=== PATIENT | male | born 1975 | race Caucasian/White ===

== ENCOUNTER 2017-01-29 20:10 | Emergency (ER) | payer BC ==
[2017-01-29 20:25] VITALS: BP 132/77; PULSE 52; RESP 16; O2SAT 100
--- NOTE | 2017-01-29 20:52 | ED PDOC ---
Lower Extremity Pain/Injury Time Seen by Provider: 01/29/17 20:27 Chief Complaint (Nursing): Lower Extremity Problem/Injury Chief Complaint (Provider): Foot pain History Per: Patient Additional Complaint(s): Pt is a 41 yo male, no PMH, presents to ED with complaints of left 5th toe pain sustained after hitting foot on table leg today. +deformity noted. Pt c.o pain upon ambulation. Past Medical History Reviewed: Nursing Documentation, Vital Signs Vital Signs: Last Vital Signs Temp 98.4 F 01/29/17 20:22 Pulse 52 L 01/29/17 20:22 Resp 16 01/29/17 20:22 BP 132/77 01/29/17 20:22 Pulse Ox 100 01/29/17 20:22 - Medical History PMH: No Chronic Diseases - Surgical History Surgical History: No Surg Hx - Family History Family History: States: No Known Family Hx - Living Arrangements Living Arrangements: With Family - Social History Current smoker - smoking cessation education provided: No Alcohol: None Drugs: Denies - Home Medications Home Medications: Ambulatory Orders Medication Instructions Recorded Ibuprofen [Motrin] 600 mg PO Q6 #20 tab 01/29/17 oxyCODONE/Acetaminophen [Percocet 1 ea PO Q6 PRN #5 tab 01/29/17 5/325 mg Tab] - Allergies Allergies/Adverse Reactions: Allergies Allergy/AdvReac Type Severity Reaction Status Date / Time No Known Allergies Allergy Verified 01/29/17 20:25 Review of Systems ROS Statement: Except As Marked, All Systems Reviewed And Found Negative Musculoskeletal: Positive for: Foot Pain Physical Exam - Reviewed Nursing Documentation Reviewed: Yes Vital Signs Reviewed: Yes - Physical Exam Appears: Positive for: Well, Non-toxic, No Acute Distress Head Exam: Positive for: ATRAUMATIC, NORMAL INSPECTION, NORMOCEPHALIC Skin: Positive for: Normal Color, Warm, DRY Eye Exam: Positive for: EOMI, Normal appearance, PERRL ENT: Positive for: Normal ENT Inspection Neck: Positive for: Normal, Painless ROM Cardiovascular/Chest: Positive for: Regular Rate, Rhythm Respiratory: Positive for: CNT, Normal Breath Sounds Gastrointestinal/Abdominal: Positive for: Normal Exam, Bowel Sounds, Soft Back: Positive for: Normal Inspection Extremity: Positive for: Tenderness (left 5th toe tenderness, medial displacement. (+) ecchymosis and mild edema), Deformity, Swelling Neurologic/Psych: Positive for: Alert, Oriented - ECG O2 Sat by Pulse Oximetry: 100 Medical Decision Making Medical Decision Making: Pt medicated with Motrin PO XR: (+) fracture to proximal phalanx, as read by DALILA Podiatry consult obtained, see note. Disposition - Clinical Impression Clinical Impression: Toe fracture - Patient ED Disposition Is Patient to be Admitted: No - Disposition Referrals: Podiatry Clinic [Outside] Disposition: Routine/Home Disposition Time: 23:25 Condition: STABLE Prescriptions: Ibuprofen [Motrin] 600 mg PO Q6 #20 tab oxyCODONE/Acetaminophen [Percocet 5/325 mg Tab] 1 ea PO Q6 PRN #5 tab PRN Reason: Pain, Severe (8-10) Instructions: Toe Fracture (ED) Forms: [facility] (Kyrgyz) - POA Present On Arrival: None
--- NOTE | 2017-01-29 21:53 | CP.PCM.CON ---
History of Present Illness - History of Present Illness History of Present Illness: Podiatry Consult Note- Dr. Ptaino 41 y/o male seen at bedside in ED after consult for left 5th toe injury. Pt states he was playing with his kids and banged his toe against the bedpost. Pt states the toe was bent in an inward direction and he was able to move it over a good amount himself to get it back in place. Pt says the toe feels numb at this time. Pt denies any tingling, burning or shooting pains to the toe. Pt denies F/C/N/V/CP/SOB. PMH: denies. Hx of orthopedic injuries (leg fracture, metatarsal fracture, elbow fracture, all conservatively tx) PSH: rectal prolapse surgery (04/2016) All: NKDA Social: social EtOH; denies cigarette or drug use Review of Systems - Review of Systems All systems: reviewed and no additional remarkable complaints except (per HPI) Past Patient History - Infectious Disease Hx of Infectious Diseases: None Meds Home Medications: Home Medication List Medication Instructions Recorded Confirmed Type Ibuprofen [Motrin] 600 mg PO Q6 #20 tab 01/29/17 Rx oxyCODONE/Acetaminophen [Percocet 1 ea PO Q6 PRN #5 tab 01/29/17 Rx 5/325 mg Tab] Allergies/Adverse Reactions: Allergies Allergy/AdvReac Type Severity Reaction Status Date / Time No Known Allergies Allergy Verified 01/29/17 20:25 Physical Exam - Constitutional Appears: Well, Non-toxic, No Acute Distress - Extremities Exam Additional comments: Left lower extremity focused examination: Vasc: DP and PT pulses palpable 2/4. Temperature gradient warm to cool. CFT < 3 sec to all digits. Localized edema noted to L 5th digit. Neuro: Protective sensation grossly intact Derm: No ecchymosis, no erythema, no breaks in skin or soft tissue, no clinical signs of infection Ortho: Mild dorsal and medial dislocation of 5th digit distal phalanx at PIPJ. Possible nondisplaced partial fracture of 5th proximal phalanx shaft, inconclusive on radiologic examination. Tenderness elicited on palpation of 5th digit distal phalanx. Tenderness elicited on passive flexion and extension of 5th digit at PIPJ. - Neurological Exam Neurological exam: Alert, Oriented x3 - Psychiatric Exam Psychiatric exam: Normal Affect, Normal Mood Results - Vital Signs Recent Vital Signs: Last Vital Signs Temp 98.4 F 01/29/17 20:22 Pulse 52 L 01/29/17 20:22 Resp 16 01/29/17 20:22 BP 132/77 01/29/17 20:22 Pulse Ox 100 01/29/17 20:52 Assessment & Plan - Assessment and Plan (Free Text) Assessment: 41 y/o male seen in ED for left foot 5th digit PIPJ dislocation with possible oblique partial fracture of proximal phalanx Plan: Pt seen and evaluated by podiatry in ED Discussed plan with attending Dr. Patino X-rays reveal dorsomedial dislocation of left foot 5th digit at PIPJ with possible oblique fracture of 5th proximal phalanx Sterilized 5th digit and surrounding region with alcohol pads 8 cc of 1% Lidocaine plain injected in local block fashion to L foot 5th digit Closed manipulation of L foot 5th digit at PIPJ performed to relocate digital bones in appropriate position Pt tolerated procedure without incident Tongue depressor and silk tape utilized to bandage toe in corrected position in a barry splint fashion with 4th digit Pt instructed on how to perform barry splinting at home Recommended that patient keep bandages dry and use a plastic bag when showering Pt dispensed surgical shoe - recommended use at all times weightbearing Pt to follow up in [facility] pod[facility]ry clinic Mon 02/06 Thank you for this consult
[2017-01-29] MEDS ORDERED: Lidocaine 2% Inj (20ml) ONE (21:54)
[2017-01-30 01:24] VITALS: TEMP 98.4
--- NOTE | 2017-01-30 13:49 | RAD ---
PROCEDURE: LEFT SMALL TOE HISTORY: walked into bedpost COMPARISON: None TECHNIQUE: Three views left small digit have been submitted with a single frontal view of the left foot. FINDINGS: An impacted fracture of the proximal phalanx of the left small digit is identified without dislocation or definite subluxation. Is unclear whether there is comminution. No significant soft tissue changes are appreciable locally. Clinically correlate further. IMPRESSION: Proximal phalanx fracture left 5th digit. No dislocation. Remainder of the left foot in the AP view appears unremarkable.
== END 2017-01-29 23:25 | disposition home or self-care (01) ==
LOC: H.ER 20:10
DX: S92.512A Displaced fracture of proximal phalanx of left lesser toe(s), initial encounter for closed fracture (principal); W22.03XA Walked into furniture, initial encounter